=== PATIENT | male | born 1965 | race Caucasian/White ===

== ENCOUNTER 2016-03-20 21:58 | Observation (INO) | payer BC ==
[~2016-03-20] VITALS: Ht 167.6 cm; Wt 108.8 kg
[~2016-03-20 21:58] MED LIST: ASPIR-LOW81 MG PO; MOXEZA3 ML BOTH EYES; PHENERGAN-CODE120 ML PO; POTASSIUM GLUCO PO; PROZAC40 MG PO; ZESTORETIC 20-1 EAC1 PO; ZITHROMAX Z-PA250 MG PO
[2016-03-20] MEDS ORDERED: POTASSIUM GLUCO90 MG PO (22:08)
[2016-03-20] MEDS ORDERED: ECHINACEA HERB380 MG PO (22:09)
[2016-03-20] MEDS ORDERED: ERGOCALCIF50000 UNIT PO (22:09)
[2016-03-20 22:47] LABS: EOSINOPHIL (%) 3.8 % (0-5); EOSINOPHIL COUNT 0.3 K/uL (0-0.3); HEMATOCRIT 37.9 % (38.0-50.0); IMMATURE GRANULOCYTE (%) 0.1 % (0.0-0.7); IMMATURE GRANULOCYTE COUNT 0.1 K/uL; LYMPHOCYTE COUNT 1.9 K/uL (1.0-2.8); MCH 29.6 PG (29.0-34.0); MCHC 34.3 G/DL (30.0-36.0); MCV 86.3 FL (86-99); MEAN PLAT.VOLUME 10.3 uM^3 (9.0-12.4); MONOCYTE (%) 10.3 % (3-12); MONOCYTE COUNT 0.9 K/uL (0-0.8); NEUTROPHIL (%) 62.8 % (45-76); NEUTROPHIL COUNT 5.3 K/uL (1.8-6.4); PLATELET COUNT 288 K/uL (156-360); RED BLOOD COUNT 4.39 M/uL (4.00-5.50); WHITE BLOOD COUNT 8.4 K/uL (4.1-10.2)
[2016-03-20 22:55] LABS: CHLORIDE 109 mEq/L (99-109); POTASSIUM 3.9 mEq/L (3.7-5.4); SODIUM 142 mEq/L (136-147)
[2016-03-20 22:57] LABS: GLUCOSE 111 mg/dL (70-99)
[2016-03-20 22:58] LABS: ANION GAP 10 MEQ/L (2-14)
[2016-03-20 23:01] LABS: GFR ESTIMATE (CALCULATED) > 59 mL/min/
[2016-03-20 23:02] LABS: UREA NITROGEN (BUN) 19 mg/dL (9-23)
[2016-03-20 23:06] LABS: INTER. NORMALIZED RATIO 1.1; PROTHROMBIN TIME 11.3 (9.2-11.2); PTT 26.4 (25-32)
[2016-03-20 23:33] LABS: CREATINE KINASE 98 IU/L (1-294)
[2016-03-21] MEDS ORDERED: PROZAC20 MG PO (07:21)
[2016-03-21] MEDS ORDERED: POTASSIUM-9999 MG PO (07:22)
[2016-03-21 08:57] VITALS: BP 148/83
[2016-03-21 12:52] VITALS: BP 132/75
[2016-03-21] MEDS ORDERED: METAXALONE800 MG PO (15:59)
[2016-03-21] MEDS ORDERED: RELAFEN500 M1 PO (15:59)
[2016-03-21 16:29] VITALS: BP 123/67
== END 2016-03-21 18:25 | disposition home or self-care (01) ==
LOC: EME 21:58 → 5WEST 03-21 05:22 → EDOF 03-21 05:22 → 5WEST 03-21 07:29
PROVIDERS: Emergency Medicine
DX: R26.9 Unspecified abnormalities of gait and mobility (principal); M19.90 Unspecified osteoarthritis, unspecified site; M62.81 Muscle weakness (generalized); M79.671 Pain in right foot; M79.672 Pain in left foot; N28.1 Cyst of kidney, acquired; I10 Essential (primary) hypertension; F41.9 Anxiety disorder, unspecified; M54.9 Dorsalgia, unspecified
CPT/HCPCS: 70450; 72131; 72148; 80048; 82140; 82550; 85025; 85610; 85730; 86850; 86900; 86901; 99281; 99284; G0378; J7030

== ENCOUNTER 2016-04-21 18:46 | Inpatient (IN) | payer BC ==
[~2016-04-21] VITALS: Ht 167.6 cm; Wt 103.0 kg
[~2016-04-21 18:46] MED LIST changes: +ECHINACEA HERB380 MG PO; +ERGOCALCIF50000 UNIT PO; +METAXALONE800 MG PO; +POTASSIUM GLUCO90 MG PO; +POTASSIUM-9999 MG PO; +PROZAC20 MG PO; +RELAFEN500 M1 PO
[2016-04-21 19:36] LABS: EOSINOPHIL (%) 0.6 % (0-5); EOSINOPHIL COUNT 0.1 K/uL (0-0.3); HEMATOCRIT 41.6 % (38.0-50.0); IMMATURE GRANULOCYTE (%) 0.2 % (0.0-0.7); IMMATURE GRANULOCYTE COUNT 0.2 K/uL; LYMPHOCYTE COUNT 1.6 K/uL (1.0-2.8); MCH 29.1 PG (29.0-34.0); MCHC 33.9 G/DL (30.0-36.0); MCV 85.8 FL (86-99); MEAN PLAT.VOLUME 10.7 uM^3 (9.0-12.4); MONOCYTE (%) 6.7 % (3-12); MONOCYTE COUNT 0.8 K/uL (0-0.8); NEUTROPHIL (%) 78.4 % (45-76); NEUTROPHIL COUNT 8.9 K/uL (1.8-6.4); PLATELET COUNT 382 K/uL (156-360); RBC DIS.WIDTH-SD 36.6 % (39-53); RED BLOOD COUNT 4.85 M/uL (4.00-5.50); WHITE BLOOD COUNT 11.3 K/uL (4.1-10.2)
[2016-04-21 19:47] LABS: CHLORIDE 100 mEq/L (99-109); POTASSIUM 3.7 mEq/L (3.7-5.4); SODIUM 140 mEq/L (136-147)
[2016-04-21 19:49] LABS: GLUCOSE 90 mg/dL (70-99)
[2016-04-21 19:50] LABS: ANION GAP 13 MEQ/L (2-14)
[2016-04-21 19:53] LABS: GFR ESTIMATE (CALCULATED) > 59 mL/min/; UREA NITROGEN (BUN) 21 mg/dL (9-23)
[2016-04-22 01:45] VITALS: BP 119/57
[2016-04-22 05:00] VITALS: BP 130/70
[2016-04-22 07:53] VITALS: BP 122/59
[2016-04-22 11:36] VITALS: BP 135/74
[2016-04-22 12:42] LABS: HEMATOCRIT 39.1 % (38.0-50.0); MCH 28.6 PG (29.0-34.0); MCHC 32.7 G/DL (30.0-36.0); MCV 87.3 FL (86-99); MEAN PLAT.VOLUME 10.7 uM^3 (9.0-12.4); PLATELET COUNT 329 K/uL (156-360); RBC DIS.WIDTH-CV 12.4 % (11.8-14.6); RBC DIS.WIDTH-SD 39.9 % (39-53); RED BLOOD COUNT 4.48 M/uL (4.00-5.50); WHITE BLOOD COUNT 8.1 K/uL (4.1-10.2)
[2016-04-22 13:07] LABS: ANION GAP 10 MEQ/L (2-14); CHLORIDE 100 MEQ/L (99-109); GFR ESTIMATE (CALCULATED) > 59 mL/min/; GLUCOSE 98 mg/dL (70-99); POTASSIUM 3.2 MEQ/L (3.7-5.4); SAMPLE HEMOLYSIS CHECK 0; SAMPLE ICTERIC CHECK 0; SAMPLE LIPEMIA CHECK 0; SODIUM 139 MEQ/L (136-147); UREA NITROGEN (BUN) 20 mg/dL (9-23)
[2016-04-22 15:41] VITALS: BP 126/68
[2016-04-22 17:13] LABS: ADD MIUA? YES; BILIRUBIN SMALL; BLOOD NEGATIVE; COLOR DK YELLOW ((YELLOW)); GLUCOSE (STRIP) NEGATIVE; KETONES 15; LEUKOCYTES NEGATIVE; NITRITE NEGATIVE; PH, URINE 6.5 (5-8); PROTEIN (STRIP) NEGATIVE; SPECIFIC GRAVITY 1.025 (1.000-1.030)
[2016-04-22 17:46] LABS: RED BLOOD CELLS 0-5 /HPF (0-5); WHITE BLOOD CELLS RARE /HPF (0-5)
[2016-04-22 17:47] LABS: BACTERIA RARE /HPF; CASTS PRESENT /LPF; CRYSTALS NONE SEEN; EPITHELIAL CELLS NONE SEEN /HPF; HYALINE CASTS 0-5 /LPF; MUCUS 2+ /LPF; UCUL ADDED? NO
[2016-04-22 18:19] VITALS: BP 126/64
[2016-04-23 08:30] VITALS: BP 106/55
[2016-04-23 08:39] LABS: ANION GAP 9 MEQ/L (2-14); CHLORIDE 102 MEQ/L (99-109); GFR ESTIMATE (CALCULATED) > 59 mL/min/; GLUCOSE 134 mg/dL (70-99); POTASSIUM 3.7 MEQ/L (3.7-5.4); SAMPLE HEMOLYSIS CHECK 0; SAMPLE ICTERIC CHECK 0; SAMPLE LIPEMIA CHECK 0; SODIUM 140 MEQ/L (136-147); UREA NITROGEN (BUN) 15 mg/dL (9-23)
[2016-04-23 08:43] LABS: HEMATOCRIT 35.5 % (38.0-50.0); MCH 30.7 PG (29.0-34.0); MCHC 34.9 G/DL (30.0-36.0); MCV 87.9 FL (86-99); MEAN PLAT.VOLUME 10.9 uM^3 (9.0-12.4); PLATELET COUNT 315 K/uL (156-360); RBC DIS.WIDTH-CV 12.2 % (11.8-14.6); RBC DIS.WIDTH-SD 39.2 % (39-53); RED BLOOD COUNT 4.04 M/uL (4.00-5.50)
[2016-04-23 08:44] LABS: WHITE BLOOD COUNT 12.9 K/uL (4.1-10.2)
[2016-04-23 14:45] VITALS: BP 111/55
[2016-04-23 19:39] VITALS: BP 109/59
[2016-04-23 23:26] VITALS: BP 112/60
[2016-04-24 03:48] VITALS: BP 110/66
[2016-04-24 07:21] VITALS: BP 117/67
[2016-04-24] MEDS ORDERED: HYDROCODON-ACE1 EAC7 PO (08:58)
[2016-04-24] MEDS ORDERED: K-DUR20 MEQ PO (08:58)
[2016-04-24] MEDS ORDERED: ZOLPIDEM TARTRAT5 MG PO (08:58)
[2016-04-24] MEDS ORDERED: CYCLOBENZAPRINE10 MG PO (08:58)
[2016-04-24 12:22] VITALS: BP 114/62
== END 2016-04-24 13:26 | DRG 472 ==
LOC: EME 18:46 → 5WEST 04-22 00:09 → EDOF 04-22 00:09 → 5WEST 04-22 01:22 → 3EAST 04-22 14:55 → 5WEST 04-22 14:55 → 3EAST 04-23 00:10
PROVIDERS: Emergency Medicine; Hospitalist; Physician Assistant
DX: M50.021 Cervical disc disorder at C4-C5 level with myelopathy (principal); M47.12 Other spondylosis with myelopathy, cervical region; M50.022 Cervical disc disorder at C5-C6 level with myelopathy; M48.06 Spinal stenosis, lumbar region; E87.6 Hypokalemia; M62.81 Muscle weakness (generalized); R29.2 Abnormal reflex; R26.1 Paralytic gait; M24.542 Contracture, left hand; M24.541 Contracture, right hand; R20.8 Other disturbances of skin sensation; R25.8 Other abnormal involuntary movements; R29.6 Repeated falls; I10 Essential (primary) hypertension; F41.9 Anxiety disorder, unspecified
CPT/HCPCS: 72040; 76000; 80048; 81003; 83735; 85025; 85027; 86850; 86900; 86901; 93005; 97530 GO; 99281; 99285; C1713; J0330; J0690; J1100; J1170; J2250; J2405; J3010; J3370; J7120; S0028

== ENCOUNTER 2016-04-24 09:14 | Inpatient (IN) | payer BC ==
[~2016-04-24] VITALS: Ht 167.6 cm; Wt 105.0 kg
[~2016-04-24 09:14] MED LIST changes: +CYCLOBENZAPRINE10 MG PO; +HYDROCODON-ACE1 EAC7 PO; +K-DUR20 MEQ PO; +ZOLPIDEM TARTRAT5 MG PO
[2016-04-24 13:36] VITALS: BP 117/67
[2016-04-24 15:00] VITALS: BP 120/63
[2016-04-24 16:34] LABS: ALKALINE PHOSPHATASE 79 IU/L (3-129); ANION GAP 8 MEQ/L (2-14); CHLORIDE 102 MEQ/L (99-109); GFR ESTIMATE (CALCULATED) > 59 mL/min/; POTASSIUM 3.5 MEQ/L (3.7-5.4); SAMPLE HEMOLYSIS CHECK 0; SAMPLE ICTERIC CHECK 0; SAMPLE LIPEMIA CHECK 0; SODIUM 138 MEQ/L (136-147); TOTAL BILIRUBIN 0.9 MG/DL (0.0-1.0); UREA NITROGEN (BUN) 15 mg/dL (9-23)
[2016-04-24 16:39] LABS: HEMATOCRIT 34.3 % (38.0-50.0); MCH 30.2 PG (29.0-34.0); MCHC 33.5 G/DL (30.0-36.0); MEAN PLAT.VOLUME 10.7 uM^3 (9.0-12.4); PLATELET COUNT 301 K/uL (156-360); RBC DIS.WIDTH-CV 12.7 % (11.8-14.6); RBC DIS.WIDTH-SD 41.4 % (39-53); RED BLOOD COUNT 3.81 M/uL (4.00-5.50); WHITE BLOOD COUNT 16.9 K/uL (4.1-10.2)
[2016-04-24 16:47] LABS: GLUCOSE 98 mg/dL (70-99)
[2016-04-25 00:24] VITALS: BP 116/57
[2016-04-25 05:51] VITALS: BP 129/68
[2016-04-25 15:32] VITALS: BP 108/58
[2016-04-26 05:23] VITALS: BP 107/58
[2016-04-26 15:01] VITALS: BP 114/71
[2016-04-27 04:41] LABS: EOSINOPHIL COUNT 0.3 K/uL (0-0.3); HEMATOCRIT 35.4 % (38.0-50.0); IMMATURE GRANULOCYTE (%) 0.2 % (0.0-0.7); IMMATURE GRANULOCYTE COUNT 0.2 K/uL; LYMPHOCYTE COUNT 1.8 K/uL (1.0-2.8); MCH 29.5 PG (29.0-34.0); MCHC 33.6 G/DL (30.0-36.0); MCV 87.8 FL (86-99); MEAN PLAT.VOLUME 10.5 uM^3 (9.0-12.4); MONOCYTE (%) 14.2 % (3-12); MONOCYTE COUNT 1.5 K/uL (0-0.8); NEUTROPHIL (%) 64.9 % (45-76); NEUTROPHIL COUNT 6.7 K/uL (1.8-6.4); PLATELET COUNT 408 K/uL (156-360); RBC DIS.WIDTH-CV 11.8 % (11.8-14.6); RBC DIS.WIDTH-SD 37.3 % (39-53); RED BLOOD COUNT 4.03 M/uL (4.00-5.50); WHITE BLOOD COUNT 10.4 K/uL (4.1-10.2)
[2016-04-27 04:48] LABS: CHLORIDE 101 mEq/L (99-109); POTASSIUM 4.7 mEq/L (3.7-5.4); SODIUM 136 mEq/L (136-147)
[2016-04-27 04:50] VITALS: BP 109/46
[2016-04-27 04:50] LABS: GLUCOSE 101 mg/dL (70-99)
[2016-04-27 04:52] LABS: ANION GAP 8 MEQ/L (2-14); TOTAL BILIRUBIN 0.7 mg/dL (0.0-1.0)
[2016-04-27 04:54] LABS: ALKALINE PHOSPHATASE 90 IU/L (3-129); GFR ESTIMATE (CALCULATED) > 59 mL/min/
[2016-04-27 04:55] LABS: UREA NITROGEN (BUN) 14 mg/dL (9-23)
[2016-04-27 15:37] VITALS: BP 107/57
[2016-04-28 04:54] VITALS: BP 124/62
== END 2016-04-28 11:54 | DRG 949 ==
LOC: 3WEST 09:14
PROVIDERS: Psychiatry & Neurology Neurology
PROC: F07M0ZZ Range of Motion and Joint Mobility Treatment of Musculoskeletal System - Whole Body (ICD-10-PCS; principal; 2016-04-24)
DX: Z48.89 Encounter for other specified surgical aftercare (principal); R53.1 Weakness; M47.12 Other spondylosis with myelopathy, cervical region; D62 Acute posthemorrhagic anemia; Z60.2 Problems related to living alone; I10 Essential (primary) hypertension; E55.9 Vitamin D deficiency, unspecified; F41.9 Anxiety disorder, unspecified; M48.02 Spinal stenosis, cervical region
CPT/HCPCS: 80053; 85025; 85027; 92610 GN; 97110 GO; 97530 GP; C1713

== ENCOUNTER 2016-04-28 12:04 | Inpatient (IN) | payer BC ==
[2016-04-28 12:42] VITALS: BP 114/59
[2016-04-28 20:22] LABS: POINT-OF-CARE METER ID UU14149397
[2016-04-28 22:19] VITALS: BP 146/80
[2016-04-28 23:40] VITALS: BP 153/83
[2016-04-29 04:48] VITALS: BP 129/75
[2016-04-29 06:18] LABS: POINT-OF-CARE METER ID UU14149397
[2016-04-29 07:46] VITALS: BP 140/70
[2016-04-29 15:18] VITALS: BP 115/56
[2016-04-30 00:34] VITALS: BP 120/64
[2016-04-30 08:30] VITALS: BP 136/73
[2016-04-30] MEDS ORDERED: FLUOXETINE HCL20 MG PO (13:30)
[2016-04-30] MEDS ORDERED: VALIUM5 MG PO (17:07)
[2016-04-30] MEDS ORDERED: NORCO 10/3251 TABLET PO (17:08)
[2016-04-30] MEDS ORDERED: DULCOLAX5 MG PO (17:08)
== END 2016-04-30 15:24 | DRG 473 ==
LOC: SDC 12:04 → 2SOUTH 18:41 → 3EAST 18:41
PROVIDERS: Neurological Surgery
DX: M47.12 Other spondylosis with myelopathy, cervical region (principal); M48.02 Spinal stenosis, cervical region; I10 Essential (primary) hypertension; E55.9 Vitamin D deficiency, unspecified; M06.9 Rheumatoid arthritis, unspecified; M19.90 Unspecified osteoarthritis, unspecified site; F41.9 Anxiety disorder, unspecified; Z87.891 Personal history of nicotine dependence
CPT/HCPCS: 72020; 72040; 76000; 82948; 95938; C1713; G0378; J0330; J0690; J1100; J1170; J1580; J2250; J2405; J2710; J2930; J3010; J3370; J3480; S0020

== ENCOUNTER 2016-04-30 12:03 | Inpatient (IN) | payer BC ==
[~2016-04-30] VITALS: Ht 167.6 cm; Wt 95.8 kg
[2016-04-30] MEDS ORDERED: FLUOXETINE HCL20 MG PO (13:30)
[2016-04-30 15:41] VITALS: BP 137/87
[2016-04-30] MEDS ORDERED: VALIUM5 MG PO (17:07)
[2016-04-30] MEDS ORDERED: NORCO 10/3251 TABLET PO (17:08)
[2016-04-30] MEDS ORDERED: DULCOLAX5 MG PO (17:08)
[2016-04-30 23:32] VITALS: BP 114/56
[2016-05-01 04:57] VITALS: BP 120/75
[2016-05-01 04:57] LABS: HEMATOCRIT 34.8 % (38.0-50.0); MCH 30.4 PG (29.0-34.0); MCHC 34.2 G/DL (30.0-36.0); MCV 88.8 FL (86-99); MEAN PLAT.VOLUME 9.8 uM^3 (9.0-12.4); PLATELET COUNT 479 K/uL (156-360); RBC DIS.WIDTH-CV 12.2 % (11.8-14.6); RED BLOOD COUNT 3.92 M/uL (4.00-5.50); WHITE BLOOD COUNT 11.8 K/uL (4.1-10.2)
[2016-05-01 05:19] LABS: ALKALINE PHOSPHATASE 93 IU/L (3-129); ANION GAP 7 MEQ/L (2-14); CHLORIDE 96 MEQ/L (99-109); GFR ESTIMATE (CALCULATED) > 59 mL/min/; GLUCOSE 99 mg/dL (70-99); POTASSIUM 4.3 MEQ/L (3.7-5.4); SAMPLE HEMOLYSIS CHECK 0; SAMPLE ICTERIC CHECK 0; SAMPLE LIPEMIA CHECK 0; SODIUM 133 MEQ/L (136-147); UREA NITROGEN (BUN) 17 mg/dL (9-23)
[2016-05-01 05:29] LABS: TOTAL BILIRUBIN 0.6 MG/DL (0.0-1.0)
[2016-05-02 05:53] VITALS: BP 137/57
[2016-05-03 05:50] VITALS: BP 104/56
[2016-05-03 15:37] VITALS: BP 111/59
[2016-05-04 05:34] VITALS: BP 130/68
[2016-05-04 15:00] VITALS: BP 120/55
[2016-05-05 05:49] VITALS: BP 125/59
[2016-05-05 15:45] VITALS: BP 103/56
[2016-05-06 05:35] VITALS: BP 119/65
[2016-05-06 16:35] VITALS: BP 112/52
[2016-05-07 05:14] VITALS: BP 115/59
[2016-05-07 15:17] VITALS: BP 113/57
[2016-05-08 04:32] LABS: HEMATOCRIT 38.1 % (38.0-50.0); MCHC 33.9 G/DL (30.0-36.0); MCV 85.6 FL (86-99); PLATELET COUNT 559 K/uL (156-360); RBC DIS.WIDTH-CV 11.7 % (11.8-14.6); RBC DIS.WIDTH-SD 35.3 % (39-53); RED BLOOD COUNT 4.45 M/uL (4.00-5.50); WHITE BLOOD COUNT 11.4 K/uL (4.1-10.2)
[2016-05-08 04:45] LABS: CHLORIDE 98 mEq/L (99-109); POTASSIUM 4.6 mEq/L (3.7-5.4); SODIUM 133 mEq/L (136-147)
[2016-05-08 04:48] LABS: GLUCOSE 98 mg/dL (70-99)
[2016-05-08 04:49] LABS: ANION GAP 9 MEQ/L (2-14)
[2016-05-08 04:50] LABS: TOTAL BILIRUBIN 0.6 mg/dL (0.0-1.0)
[2016-05-08 04:51] LABS: ALKALINE PHOSPHATASE 109 IU/L (3-129); GFR ESTIMATE (CALCULATED) > 59 mL/min/
[2016-05-08 04:52] LABS: UREA NITROGEN (BUN) 21 mg/dL (9-23)
[2016-05-08 06:14] VITALS: BP 108/54
[2016-05-08 15:17] VITALS: BP 109/61
[2016-05-09 06:01] VITALS: BP 128/74
[2016-05-09] MEDS ORDERED: HYDROCODON-ACE1 EAC7 PO (09:49)
[2016-05-09] MEDS ORDERED: LIDOCAINE700 MG TD (09:49)
[2016-05-09] MEDS ORDERED: THERAGRAN1 TABLET PO (09:49)
== END 2016-05-09 12:53 | DRG 949 ==
LOC: 3WEST 12:03
PROVIDERS: Physical Medicine & Rehabilitation Pain Medicine
PROC: F07M0ZZ Range of Motion and Joint Mobility Treatment of Musculoskeletal System - Whole Body (ICD-10-PCS; principal; 2016-04-30)
DX: Z48.811 Encounter for surgical aftercare following surgery on the nervous system (principal); D62 Acute posthemorrhagic anemia; E87.1 Hypo-osmolality and hyponatremia; I10 Essential (primary) hypertension; Z47.89 Encounter for other orthopedic aftercare; Z98.1 Arthrodesis status; R26.2 Difficulty in walking, not elsewhere classified; G89.18 Other acute postprocedural pain; M54.2 Cervicalgia; D72.829 Elevated white blood cell count, unspecified; E78.00 Pure hypercholesterolemia, unspecified; F41.9 Anxiety disorder, unspecified; E55.9 Vitamin D deficiency, unspecified; E87.6 Hypokalemia; M54.5 Low back pain; Z91.81 History of falling; Z87.442 Personal history of urinary calculi
CPT/HCPCS: 80053; 85027; 97110 GO; 97530 GP